=== PATIENT | male | born 1975 | race Caucasian/White ===

== ENCOUNTER 2019-11-15 08:20 | Emergency (ER) | payer OTHER, SELFPAY ==
--- NOTE | ~2019-11-15 | XR_ITS ---
EXAMINATION: XR ankle LT min 3V DATE: 11/15/2019 09:24 INDICATION: Lateral left ankle pain post fall TECHNIQUE: Anteroposterior, oblique, mortise, and lateral views of the left ankle were obtained. COMPARISON: None. FINDINGS: Old healed fracture deformity at the distal metadiaphyseal region of the left fibula which is in near -anatomic alignment. There is heterotopic ossification along the distal tibiofibular syndesmosis. No acute fractures identified. Joint spaces are well maintained. No ankle joint effusion. The soft tiss ues are unremarkable. IMPRESSION: 1. No acute osseous abnormality. Reviewed, dictated and finalized at location A.
--- NOTE | ~2019-11-15 | XR_ITS ---
EXAMINATION: XR knee LT 3V DATE: 11/15/2019 09:24 INDICATION: Left knee pain post fall with twisting injury TECHNIQUE: Anteroposterior, oblique and crosstable lateral views of the left knee were obtained COMPARISON: None. FINDINGS: Alignment is normal. Old healed fracture deformity at the head and neck of the proximal left fibula. No acute fracture. Mild joint space narrowing and small marginal osteophytes in the lateral and jeronimo lofemoral compartments consistent with mild osteoarthritis. Small loose osteochondral body at the [place] of the medial compartment. No joint effusion/layering lipohemarthrosis. Soft tissues are unremark able. IMPRESSION: 1. Old healed proximal left fibular fracture. No acute osseous abnormality. 2. Mild lateral and patellofemoral compartment osteoarthritis. Reviewed, dictated and finalized at location A.
[2019-11-15 08:23] VITALS: BP 139/85; PULSE 100; RESP 18; TEMP 36.1; O2SAT 98
--- NOTE | 2019-11-15 10:42 | PC.NURSE ---
Pt refuses manuel wrap, knee immobilizer, and crutch training. States I will walk it off, it will be fine . Requesting to leave and sign papers; explained that we're going to d/c him after those items were placed but that I don't have papers at the present time. Pt states, I don't need those, I'll be fine. I just wanted to make sure it wasn't broke . Pt ambulatory out of dept without interventions.
--- NOTE | 2019-11-15 10:49 | ED.GENADULT ---
HPI - General Adult General Chief complaint: Extremity Injury, Lower Stated complaint: L ANKLE/KNEE INJURY Time Seen by Provider: 11/15/19 10:10 Source: patient Mode of arrival: ambulatory Limitations: no limitations History of Present Illness HPI narrative: Patient is a 44-year-old male who presents with left knee and ankle pain after falling onto the left leg while carrying an object presents noting swelling and tenderness of the knee and ankle joint worse with weightbearing and activity denies other injuries or complaints has not had anything for pain has been able to bear weight injury occurred just prior to arrival presents per private vehicle in no distress Related Data Home Medications Medication Instructions Recorded Confirmed No Home Medications 11/15/19 11/15/19 Allergies Allergy/AdvReac Type Severity Reaction Status Date / Time No Known Allergies Allergy Verified 11/15/19 08:59 Review of Systems Review of Systems: All systems reviewed & are unremarkable except as noted in HPI and below PMFSH Surgical History Surgical History History of orthopedic surgery Social History Social History Second hand tobacco smoke exposure: Yes Smoking end date: 05/17/01 Alcohol intake: current Gender identity (if verbalized by the patient): Male Exam Narrative: Exam Narrative: GENERAL: Well-appearing, well-nourished, and in no acute distress. HEAD: Normocephalic, atraumatic. EYES: PERRLA and EOMI. ENT: Nares clear, no rhinorrhea or epistaxis. Mucous membranes moist. EXTREMITIES: Slight swelling and tenderness of the left knee joint tenderness of the ankle joint with no deformity noted SKIN: Warm, dry, no rash. NEURO: No focal deficits. Alert and oriented x3. Neurovascularly intact. Capillary refill less than 2 sec PSYCH: Normal mood and affect. Course Reevaluation(s) Reevaluation #1: Patient in the room in no distress aware of case findings treatment plan and diagnosis Vital Signs Vital signs: Vital Signs Temperature 97.0 F L 11/15/19 08:23 Pulse Rate 100 11/15/19 08:23 Respiratory Rate 18 11/15/19 08:23 Blood Pressure 139/85 11/15/19 08:23 Pulse Oximetry 98 11/15/19 08:23 Temperature 97.0 F L 11/15/19 08:23 Pulse Rate 100 11/15/19 08:23 Respiratory Rate 18 11/15/19 08:23 Blood Pressure 139/85 11/15/19 08:23 Pulse Oximetry 98 11/15/19 08:23 Medical Decision Making MDM Narrative Medical decision making narrative: Patients injury or pain is consistent with musculoskeletal etiology. No signs of neurological or vascular compromise on exam. Compartments and tisues are soft without signs of compartment syndrome. Pain is felt appropriate for further evaluation on an outpatient basis. Vital Signs Vital Signs: Vital Signs Temperature 97.0 F L 11/15/19 08:23 Pulse Rate 100 11/15/19 08:23 Respiratory Rate 18 11/15/19 08:23 Blood Pressure 139/85 11/15/19 08:23 Pulse Oximetry 98 11/15/19 08:23 Temperature 97.0 F L 11/15/19 08:23 Pulse Rate 100 11/15/19 08:23 Respiratory Rate 18 11/15/19 08:23 Blood Pressure 139/85 11/15/19 08:23 Pulse Oximetry 98 11/15/19 08:23 Imaging Data Radiologist's impression: ITS Impressions Ankle X-Ray 11/15/19 09:27 IMPRESSION: 1. No acute osseous abnormality. Knee X-Ray 11/15/19 09:29 IMPRESSION: 1. Old healed proximal left fibular fracture. No acute osseous abnormality. 2. Mild lateral and patellofemoral compartment osteoarthritis. Discharge Plan Discharge Clinical Impression: Ankle sprain and strain, Acute internal derangement of knee Patient Disposition: Home, Self-Care Condition: Stable Instructions: Antibiotic Form, Crutch Instructions (ED) Additional Instructions: Wear brace and use crutches. No weight on the affected leg until able to bear weig
== END 2019-11-15 10:42 | disposition home or self-care (01) ==
PROVIDERS: Emergency Provider Emergency Medicine
DX: S93.402A Sprain of unspecified ligament of left ankle, initial encounter (principal); S96.912A Strain of unspecified muscle and tendon at ankle and foot level, left foot, initial encounter; S83.207A Unspecified tear of unspecified meniscus, current injury, left knee, initial encounter; M17.12 Unilateral primary osteoarthritis, left knee; W01.0XXA Fall on same level from slipping, tripping and stumbling without subsequent striking against object, initial encounter
CPT/HCPCS: 73562; 73610; 99284

== ENCOUNTER 2020-11-23 13:22 | Emergency (ER) | payer OTHER, SELFPAY ==
[2020-11-23 13:30] VITALS: BP 153/94; PULSE 87; RESP 16; TEMP 36.4; O2SAT 100
--- NOTE | 2020-11-23 13:53 | ED.GENADULT ---
HPI - General Adult General Chief complaint: Unspecified Stated complaint: Both legs and Feet are swollen Time Seen by Provider: 11/23/20 13:45 History of Present Illness HPI narrative: Eric Clark is a 45-year-old male who's doctor is Dr. Schultz who has not seen who states that he has intermittent leg bilateral leg swelling. Legs are at least twice the size of normal would be with a bluish cast he denies that he has a diagnosis of hypertension or any other medical condition. He smokes cigarettes Related Data Home Medications Medication Instructions Recorded Confirmed No Home Medications 11/15/19 11/15/19 Allergies Allergy/AdvReac Type Severity Reaction Status Date / Time No Known Allergies Allergy Verified 11/15/19 08:59 Review of Systems Review of Systems: Narrative: CONSTITUTIONAL: Denies fever, chills, sweats. EYES: Denies visual changes, redness, discharge. ENT: Denies rhinorrhea, congestion, sore throat, otalgia. CARDIOVASCULAR: Denies chest pain, palpitations, edema. RESPIRATORY: Denies dyspnea, wheezing, cough GASTROINTESTINAL: Denies abdominal pain, nausea, vomiting, diarrhea. GENITOURINARY: Denies dysuria, hematuria, abnormal discharge SKIN: Denies rash or itching. NEUROLOGIC: Denies numbness, or focal weakness. PSYCHIATRIC: Denies anxiety or depression. Bilateral leg swelling of at least 1 week in duration but occurs intermittently PMFSH Past Medical History Medical History No acute medical problems Surgical History Surgical History History of orthopedic surgery Social History Social History (Updated 11/23/20 @ 13:56 by Lisa English CNP) Social History: .5 Second hand tobacco smoke exposure: Yes Smoking end date: 05/17/01 Alcohol intake: current Gender identity (if verbalized by the patient): Male Exam Narrative: Exam Narrative: GENERAL: This is a well-nourished, well-developed patient, in mild distress. HEAD: normocephalic, atraumatic. EYES:. Sclera clear/white. Vision is grossly intact. EARS: External ears normal,. Hearing grossly intact. NOSE: External nose normal without nasal discharge, nares without redness, no rhinorrhea. THROAT: Mucous membranes moist, NECK: Neck supple, CARDIOVASCULAR: Regular rate and rhythm without murmurs, gallops, or rubs. Elevated blood pressure RESPIRATORY: Coarse to auscultation. Breath sounds equal bilaterally. No wheezes, rales, or rhonchi. GASTROINTESTINAL: Not done SKIN: warm, intact with no suspicious lesions or rash, good texture and turgor. NEURO: awake, alert, and oriented to person, place and time. There were no obvious focal neurologic abnormalities. Steady gait EXTREMITIES: Normal range of motion. Bilateral leg swelling with discoloration of both legs BACK: Nontender without deformity Course Course Emergency Course: Patient is an appropriate for services here as we have no labs in our testing available to assess his bilateral leg swelling he is going to go to his GP Dr. Schultz or go to the emergency room which would be at [facility], Vital Signs Vital signs: Vital Signs Temperature 97.6 F 11/23/20 13:30 Pulse Rate 87 11/23/20 13:30 Respiratory Rate 16 11/23/20 13:30 Blood Pressure 153/94 H 11/23/20 13:30 Pulse Oximetry 100 11/23/20 13:30 Temperature 97.6 F 11/23/20 13:30 Pulse Rate 87 11/23/20 13:30 Respiratory Rate 16 11/23/20 13:30 Blood Pressure 153/94 H 11/23/20 13:30 Pulse Oximetry 100 11/23/20 13:30 Medical Decision Making Differential Diagnosis Differential Diagnosis: Kidney disease versus congestive heart failure versus chronic lymph edema Vital Signs Vital Signs: Vital Signs Temperature 97.6 F 11/23/20 13:30 Pulse Rate 87 11/23/20 13:30 Respiratory Rate 16 11/23/20 13:30 Blood Pressure 153/94 H 11/23/20 13:30 Pulse Oximetry 100 11/23/20
== END 2020-11-23 14:04 | disposition home or self-care (01) ==
PROVIDERS: Emergency Provider Nurse Practitioner
DX: R22.43 Localized swelling, mass and lump, lower limb, bilateral (principal)
CPT/HCPCS: 99211; G0463